=== PATIENT | male | born 1950 | race Two or more races ===

== ENCOUNTER 2019-04-26 12:38 | Inpatient (IN) | payer MEDICARE, BC ==
[~2019-04-26] VITALS: Ht 177.8 cm; Wt 90.7 kg
[2019-04-26 13:27] LABS: CALCIUM, SERUM 9.1 mg/dL (8.5-10.1); CARBON DIOXIDE 29 mmol/L (21-32); CHLORIDE 98 mmol/L (98-107); CREATININE 0.9 mg/dL (0.6-1.3); GLUCOSE 110 mg/dL (74-106); POTASSIUM 4.3 mmol/L (3.5-5.1); SODIUM SERUM 134 mmol/L (136-145); UREA NITROGEN, BLOOD 11 mg/dL (7-18)
[2019-04-26 13:30] LABS: BASOPHILS # (AUTO) 0.1 /CMM (0.0-0.2); BASOPHILS % (AUTO) 0.8 % (0.0-2.0); EOSINOPHILS % (AUTO) 0.5 % (0.0-6.0); HEMATOCRIT 45 % (39-51); HEMOGLOBIN 14.8 g/dL (13.5-17.5); LYMPHOCYTES # (AUTO) 1.9 /CMM (0.8-4.8); LYMPHOCYTES % (AUTO) 20.9 % (20.0-44.0); MEAN CORPUSCULAR HGB CONC 33 g/dl (31.0-36.0); MEAN CORPUSCULAR VOLUME 88 fL (80-96); MONOCYTES # (AUTO) 0.8 /CMM (0.1-1.30); MONOCYTES % (AUTO) 9.3 % (2.0-12.0); NEUTROPHILS # (AUTO) 6.1 /CMM (1.8-8.9); NEUTROPHILS % (AUTO) 68.5 % (43.0-81.0); PLATELET COUNT (AUTO) 374 /CMM (150-450); RED BLOOD CELL COUNT(AUTO) 5.03 MIL/uL (4.5-6.0)
[2019-04-26 13:31] LABS: APPEARANCE,URINE Clear (CLEAR); BILIRUBIN,URINE Negative (NEGATIVE); BLOOD, URINE Negative Ery/uL (NEGATIVE); COLOR,URINE Yellow (YELLOW); KETONES,URINE Negative (NEGATIVE); LEUKOCYTE ESTERASE ,URINE Negative (NEGATIVE); NITRITE, URINE Negative (NEGATIVE); PROTEIN,URINE Negative (NEGATIVE); UGLUCOSE Negative (NEGATIVE); UROBILINOGEN,URINE 0.2 EU/dL (0.2)
[2019-04-26 13:35] LABS: ALANINE AMINOTRANSFERASE 44 U/L (12-78); ALBUMIN 3.8 g/dL (3.4-5.0); ALCOHOL, BLOOD < 3 mg/dL (0-0); ALKALINE PHOSPHATASE 56 U/L (46-116); ASPARTATE AMINOTRANSFERASE 18 U/L (15-37); BILIRUBIN,DIRECT 0.1 mg/dL (0.0-0.2); BILIRUBIN,TOTAL 0.3 mg/dL (0.2-1.0); TOTAL PROTEIN, SERUM 6.9 g/dL (6.4-8.2)
[2019-04-26] MEDS ORDERED: PANT40TA4 PO (14:27)
[2019-04-26] MEDS ORDERED: TRAM50TA2 PO (14:27)
[2019-04-26] MEDS ORDERED: TAMS-12 PO (14:27)
[2019-04-26] MEDS ORDERED: RANI300T4 PO (14:27)
[2019-04-26] MEDS ORDERED: CARI350T27 PO (14:27)
[2019-04-26] MEDS ORDERED: METH2.5T PO (14:27)
[2019-04-26] MEDS ORDERED: LEVO112T2 PO (14:27)
[2019-04-26] MEDS ORDERED: ALPR1TAB7 PO (14:27)
[2019-04-26] MEDS ORDERED: FINA5TAB11 PO (14:27)
[2019-04-26] MEDS ORDERED: MONT10TA22 PO (14:27)
[2019-04-26] MEDS ORDERED: ALBU8.5H8 IH (14:27)
[2019-04-26] MEDS ORDERED: FLUT1DIS3 IH (14:27)
[2019-04-26] MEDS ORDERED: PRAV40TA3 PO (14:27)
--- NOTE | 2019-04-26 15:27 | NUR ---
ART ETA 1 HR
--- NOTE | 2019-04-26 16:51 | NUR ---
report given to Zabrina León
[2019-04-26] MEDS ORDERED: SALI45SP MM (17:31)
--- NOTE | 2019-04-26 17:39 | NUR ---
RN-CO: PAGED DR MANUEL TO RECONCILE HOME MEDS.
[2019-04-26] MEDS ORDERED: TEMAZEPAM 7.5 MG CAPSULE PO PRN (18:00)
[2019-04-26] MEDS ORDERED: MAGNESIUM HYDROXIDE 30 ML UDC PO PRN (18:00)
[2019-04-26] MEDS ORDERED: ACETAMINOPHEN 325 MG TABLET PO PRN (18:00)
[2019-04-26] MEDS ORDERED: MAG HYDROX/AL HYDROX/SIMETH 30 ML UDC PO PRN (18:00)
--- NOTE | 2019-04-26 18:46 | NUR ---
RN-CO: Per Anthony Buckner's notes, patient is willing to sign VOL admission . However when patient came into the unit, there is no Vol form that is signed. We called Anthony Buckner to come and explain to patient.
--- NOTE | 2019-04-26 19:01 | NUR ---
RN-CO: Ariel AGUDELO made aware about the situation. Made a call to Aminta Woodruff , left a voice mail.
--- NOTE | 2019-04-26 19:15 | NUR ---
RN-CO: Patient signed VOL.
[2019-04-26] MEDS ORDERED: ALBUTEROL FS 2.5 MG/0.5 ML VIAL.NEB NEB PRN (19:30)
--- NOTE | 2019-04-26 20:00 | NUR ---
GPS/RN NOTE: ADMITTED A 69 YEAR OLD MALE FROM [facility] ER, INITIALLY CAME FROM HOME. PATIENT ADMITTED ON VOLUNTARY BASIS. PATIENT ADMITTED FOR MEDICATION ADJUSTMENT. PATIENT IS A/O X3-4. PATIENT SHOWS NO S/S OF ANY PAIN AT THIS TIME, NO APPARENT DISTRESS NOTED. PATIENT IS VERY UNCOOPERATIVE, SARCASTIC, DEMANDING ANXIOUS, DEPRESSED ARGUMENTATIVE, QUESTIONED AND COMPLAINED ABOUT A LOT OF THINGS, REFUSED TO SIGN CONSENT. ENVIRONMENTAL SAFETY CHECK DONE. REFUSED SKIN ASSESSMENT AND MRSA SCREEN. PATIENT'S CONDITION STABLE, NO ACUTE DISTRESS NOTED. BELONGINGS INVENTORIED AND CHECKED FOR CONTRABAND. BED LOCKED AND PLACED ON LOWEST POSITION TO MAINTAIN SAFETY. WILL CONTINUE TO MONITOR Q 15 MINS. TO MAINTAIN SAFETY.
[2019-04-26] MEDS: TRAMADOL HCL 50 MG TABLET PO PRN (20:05)
[2019-04-26] MEDS: clonazePAM 0.5 MG TABLET PO PRN (20:06)
[2019-04-26 20:18] VITALS: BP 149/89
--- NOTE | 2019-04-26 20:28 | NUR ---
PAGED DR. WAER, RE: PATIENT WANTS TO TAKE HER REGULAR MEDS THAT HE DID NOT TAKE IN THE MORNING SCHEDULED.
[2019-04-26] MEDS ORDERED: FINASTERIDE (5 MG) 5 MG TABLET PO SCH (22:00)
[2019-04-26] MEDS ORDERED: TAMSULOSIN 0.4 MG CAP.SR.24H PO SCH (22:00)
[2019-04-26] MEDS ORDERED: clonazePAM 0.5 MG TABLET PO ONE (23:00)
[2019-04-27 06:51] LABS: ALBUMIN 3.5 g/dL (3.4-5.0); BILIRUBIN,TOTAL 0.4 mg/dL (0.2-1.0); CALCIUM, SERUM 9.2 mg/dL (8.5-10.1); POTASSIUM 4.4 mmol/L (3.5-5.1); TOTAL PROTEIN, SERUM 6.5 g/dL (6.4-8.2)
[2019-04-27] MEDS ORDERED: LEVOTHYROXINE SODIUM 112 MCG TABLET PO SCH (07:30)
[2019-04-27 08:00] VITALS: BP 145/83
[2019-04-27] MEDS ORDERED: FINASTERIDE (5 MG) 5 MG TABLET PO SCH (09:00)
[2019-04-27] MEDS ORDERED: ATORVASTATIN 10 MG TABLET PO SCH ×2 (09:00→22:00)
[2019-04-27] MEDS ORDERED: FLUTICASONE/VILANTEROL 1 EACH BLST.W.DEV IH SCH (09:00)
[2019-04-27] MEDS ORDERED: MONTELUKAST SODIUM (10MG) 10 MG TABLET PO SCH (09:00)
[2019-04-27] MEDS ORDERED: CARISOPRODOL 350 MG TABLET PO SCH (09:00)
[2019-04-27] MEDS ORDERED: PANTOPRAZOLE 40 MG TABLET.DR PO SCH (09:00)
[2019-04-27] MEDS: clonazePAM 0.5 MG TABLET PO PRN (09:11)
[2019-04-27] MEDS: TRAMADOL HCL 50 MG TABLET PO PRN (09:19)
[2019-04-27 16:00] VITALS: BP 132/89
--- NOTE | 2019-04-27 16:00 | NUR ---
DISCHARGE/PSYCHOSOCIAL NOTE: Pt was admitted as voluntary admission on 04/26/19 at 1600. Pt was discharged 24 hours later home to [address] [place] [id number] . Pts Pat [phone] will be picking pt up and transporting home. Pt denied suicidal/homicidal ideation and denied visual/auditory hallucinations. SW provided pt with a referral to [facility] Address: [address] [place] [address] [address], [place] [address] and encouraged him to present before 5:00pm on Friday04/28/19 for an intake. The multidisciplinary exit care form was done, printed, signed, and given to the patient.
--- NOTE | 2019-04-27 17:00 | NUR ---
NURSING DISCHARGE NOTE: PT WAS DISCHARGE TODAY AT 1700 TO PT'S HOME. PT LEFT THE UNIT AMBULATORY ESCORTED BY 1 [employer] DEVELOPER OFF THE UNIT TO WAIT AND BE PICKED UP BY HIS OMAR. PT IS A&OX4, CALM, COOPERATIVE, MED COMPLIANT, DENIES SI/HI/AVH AT THE TIME OF DISCHARGE. PT WAS SEEN AND ASSESSED BY DR. SHAW WITH ORDER TO DISCHARGE PT HOME TODAY. PT WAS GIVEN PRESCRIPTIONS FROM DR. SHAW AND EXPLAINED TO PT. PT IS ALSO MEDICALLY CLEARED FOR DISCHARGE PER DR. MANUEL WITH ORDER TO CONTINUE ALL SCHEDULED MEDS. PT WAS COOPERATIVE WITH DISCHARGE PROCESS AND HAS SIGNED ALL DISCHARGE PAPERWORK. ALL BELONGINGS WERE RETURNED TO PT WELL. PT WAS GIVEN DISCHARGE INSTRUCTIONS AND PT HAS VERBALIZED UNDERSTANDING OF DISCHARGE INSTRUCTIONS. VS STABLE. SKIN INTACT. NO S/S OF ANY DISTRESS NOTED. NO C/O PAIN OR ANY DISCOMFORT.
[2019-04-28] MEDS ORDERED: LEVOTHYROXINE SODIUM 112 MCG TABLET PO SCH (07:30)
[2019-04-30] MEDS ORDERED: METHOTREXATE SODIUM (2.5MG) 2.5 MG TABLET PO SCH ×2 (09:00→09:18)
== END 2019-04-27 17:00 | disposition home or self-care (01) | DRG 880 ==
LOC: ER 12:38 → GPS 16:00
PROVIDERS: ADMIT Psychiatry & Neurology Psychiatry; ATTEND Internal Medicine
DX: F41.1 Generalized anxiety disorder (principal); F32.9 Major depressive disorder, single episode, unspecified; J45.909 Unspecified asthma, uncomplicated; E03.9 Hypothyroidism, unspecified; M06.9 Rheumatoid arthritis, unspecified; E78.5 Hyperlipidemia, unspecified; K21.9 Gastro-esophageal reflux disease without esophagitis; I10 Essential (primary) hypertension
CPT/HCPCS: 36415; 70450-TC; 80048-TC; 80053-TC; 80061-TC; 80076-TC; 80305; 81000-TC; 84443-TC; 85025-TC; 87081-TC; G0480